=== PATIENT | female | born 1970 | race Caucasian/White ===

== ENCOUNTER 2020-05-04 08:03 | Emergency (ER) | payer SELFPAY ==
[2020-05-04] MEDS ORDERED: Acetaminophen 500 MG TAB ONE (08:20)
[2020-05-04] MEDS ORDERED: Ketorolac Tromethamine 30 MG/ML VIAL ONE (08:20)
--- NOTE | 2020-05-04 08:48 | RAD ---
Exam:2 views right hip HISTORY: Fall. Pain. COMPARISON: None FINDINGS: Hip joint spaces preserved. No fracture or malalignment. Visualized bony pelvis is intact. IMPRESSION: No fracture.
== END 2020-05-04 09:45 | disposition home or self-care (01) ==
LOC: ERS 08:03
DX: S70.01XA Contusion of right hip, initial encounter (principal); M54.5 Low back pain; L40.0 Psoriasis vulgaris; I10 Essential (primary) hypertension; I25.10 Atherosclerotic heart disease of native coronary artery without angina pectoris; W01.0XXA Fall on same level from slipping, tripping and stumbling without subsequent striking against object, initial encounter
CPT/HCPCS: 96372; J1885

== ENCOUNTER 2020-05-29 19:16 | Emergency (ER) | payer SELFPAY ==
[~2020-05-29 19:16] MED LIST: Iopamidol-370 76% 500 ML 1 ML ONE
[2020-05-29 20:27] LABS: #Eosinphils 0.1 thou/uL (0.0-0.7); #Lymphocytes 1.6 thou/uL (1.20-3.40); #Monocytes 0.8 thou/uL (0.11-0.59); %Basophils 0.4 % (0.0-1.0); %Eosinophils 1.8 % (0.0-10.0); %Lymphocytes 21.1 % (21.0-51.0); %Monocytes 10.9 % (0.0-10.0); %Neutrophils 65.9 % (42.0-75.0); Hemoglobin 12.2 g/dL (12.0-16.0); Mean Corpuscular HGB CONC 33.5 g/dL (32.0-36.0); Mean Corpuscular Hemoglobin 30.1 pg (27.0-31.0); Mean Corpuscular Volume 89.9 fL (78.0-98.0); Mean Platelet Volume 6.8 fL (7.4-10.4); Platelet Count 336 thou/uL (130-400); RBC Distribution Width 13.5 % (11.5-14.5); Red Blood Cell (RBC) Count 4.04 mill/uL (4.20-5.40); White Blood Cell (WBC) Count 7.6 thou/uL (4.8-10.8)
[2020-05-29 20:49] LABS: ALT (SGPT) 44 U/L (8-55); AST (SGOT) 42 U/L (5-34); Albumin 3.8 g/dL (3.5-5.0); Alkaline Phosphatase 115 U/L (40-110); Anion Gap 16 mmol/L (10-20); BUN (Urea Nitrogen) 14 mg/dL (7.0-18.7); Bilirubin, Total Less than 0.2 mg/dL (0.2-1.2); CK (CPK) 150 U/L (29-168); Calc. Creatinine Clearance 0 mL/min (70-130); Calcium 8.8 mg/dL (7.8-10.44); Carbon Dioxide 29 mmol/L (22-29); Chloride 102 mmol/L (98-107); Globulin 3.3 g/dL (2.4-3.5); Glucose 109 mg/dL (70-105); Potassium 3.7 mmol/L (3.5-5.1); Protein, Total 7.1 g/dL (6.0-8.3); Sodium 143 mmol/L (136-145)
[2020-05-29] MEDS ORDERED: Aspirin Chewable 81 MG TAB ONE ×2 (20:57)
--- NOTE | 2020-05-29 20:59 | RAD ---
EXAM: CHEST ONE VIEW: 05/29/20 HISTORY: Chest pain. FINDINGS: Heart size is within normal limits. The lungs are clear. No confluent pneumonia, overt, edema or pleu ral effusion. IMPRESSION: No significant acute intrathoracic disease. POS: RRE
--- NOTE | 2020-05-29 23:49 | CT ---
Exam: CT angiogram of the chest HISTORY: Chest pain. COMPARISON: None TECHNIQUE: CT angiogram of the chest is performed in the axial plane. Three-dimensional reformatted i mages are submitted for interpretation FINDINGS: Mediastinum: No mass, lymphadenopathy or hematoma. HEART: Normal size. No significant pericardial fluid. Aorta: No aneurysm or dissection Upper solid abdominal viscera: No abnormality enhancement. Trachea and central bronchi: Patent Pleural spaces: No effusion Lung parenchyma: No masses or consolidation. Pneumothorax: None Osseous structures: No lytic or blastic lesions Pulmonary arteries: Adequate contrast opacification pulmonary arterial system to the level of segment al arteries. No filling defect to suggest pulmonary embolism IMPRESSION:No evidence of pulmonary artery embolism to the level of the segmental arteries.
== END 2020-05-30 00:53 | disposition home or self-care (01) ==
LOC: ERS 19:16
DX: R07.9 Chest pain, unspecified (principal); I10 Essential (primary) hypertension
CPT/HCPCS: 36415; 71045; 71275; 80053; 82550; 84484; 85025; 85379; 93005; Q9967